=== PATIENT | female | born 1990 | race Caucasian/White ===

== ENCOUNTER 2022-07-02 14:40 | Emergency (ER) | payer OTHER ==
[~2022-07-02] VITALS: Ht 160 cm; Wt 54.4 kg
[2022-07-02] MEDS ORDERED: LEVO75CA5 PO (15:18)
--- NOTE | 2022-07-02 16:48 | NUR ---
Patient moved to ER room 3 from [facility].
[2022-07-02] MEDS ORDERED: NAPR-1192 PO (16:50)
--- NOTE | 2022-07-02 16:50 | NUR ---
Patient discharged to home in stable condition. Written and verbal after care instructions given. Patient verbalizes understanding of instructions. Stressed follow up or return to ER for worsening s/s.
[2022-07-02 17:21] VITALS: BP 137/92
== END 2022-07-02 17:21 | disposition home or self-care (01) ==
LOC: ER 14:43
DX: M79.641 Pain in right hand (principal); Z79.899 Other long term (current) drug therapy
CPT/HCPCS: 73130; A4663